=== PATIENT | male | born 1985 | race Two or more races ===

== ENCOUNTER 2020-02-12 10:47 | Outpatient (REF) | payer OTHER, SELFPAY ==
--- NOTE | 2020-02-12 | XR_ITS ---
EXAMINATION: XR SHOULDER, RIGHT CLINICAL INFORMATION: Right shoulder pain COMPARISON: None TECHNIQUE: AP external rotation, Grashey, scapular Y, and axillary views of the right shoulder. FINDINGS: The bones and soft tissues are normal. No fracture. Glenohumeral and acromioclavicular alignment is anatomic with normal joint space. No abnormal soft tissue calcifications. IMPRESSION: Unremarkable right shoulder radiographs.
== END 2020-02-12 10:48 | disposition home or self-care (01) ==
LOC: HO.XRAY 10:47
PROVIDERS: PCP Internal Medicine; Visit Provider Internal Medicine
DX: M25.511 Pain in right shoulder (principal)
CPT/HCPCS: 73030

== ENCOUNTER 2020-02-17 08:09 | Outpatient (RCR) | payer OTHER, SELFPAY ==
--- NOTE | 2020-02-17 09:41 | MHC.PT.EP ---
[facility] [place] Office [place] Office [place] [facility] [address] Reid Garcia [address] [phone] F: [phone] F: [phone] F: [phone] F: [phone] Physical Therapy Plan of Care Date of Evaluation: 02/17/20 Date of Surgery: Diagnosis: CHRONIC RIGHT SHOULDER PAIN Assessment: PT EVAL: 34 YO MALE REF TO PT FOR RIGHT CHRONIC SHOULDER PAIN, PROGRESSIVE x 5 YEARS. 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 Pt HAS OBJECTIVE FINDINGS OF PAIN IN RIGHT POST RC/ ANT GH AND MID DELT, LIMITED AROM RIGHT SH, DECR SCAP/ POST RC STRENGTH, (+) IMPINGEMENT SXS AND DECR STAB, AND (+) COMPENSATION. FUNCTIONAL LIMITATIONS INCLUDE DECR DEANA TO REACH ANT/ IR POST/ OVERHEAD, DIFFIC SLEEPING, SHOWERING, AND LIMITED W PHYSICALLY DEMANDING WORK TASKS. HE WOULD BENEFIT FROM PT TO ADDRESS PAIN/ SOFT TISSUE IRRIT, DEV HEP, AND IMPROVE FUNCTIONAL MOBILITY TOLERANCE. Frequency and Duration: The patient will be seen 2 x WK x 5 WKS Short Term Goals: Pt DEMON IMPROVED SELF CORRECT OF POSTURE AND INCR AROM RIGHT SH IN 2 WKS Pt'S RIGHT SH PAIN DECR TO 2-3/10 W REG ADLs IN 3 WKS [place] Man Goals: Pt INDEP W HEP AND SELF SX MGMT TECHN FOR RIGHT SH IN 5 WKS Pt RESUME REG ADLs/ FITNESS/WORK TASKS- EVIDENT W IMPROVED SPADI BY 20 POINTS IN 5 WKS Pt DEMON WFL STRENGTH AND STAB IN RIGHT SH GIRDLE IN 5 WKS Treatment Plan: Modalities to reduce pain, spasms and effusion. Manual therapy to restore motion and function. Therapeutic exercise to improve strength and flexibility. Neuromuscular re-education for posture and balance. Therapeutic activities to return to functional activities of daily living. Please sign and return to therapist. Thank you for your referral.
== END 2020-02-26 08:31 | disposition other institution (70) ==
LOC: HO.PT 08:09
PROVIDERS: Visit Provider Internal Medicine
DX: M25.511 Pain in right shoulder (principal)
CPT/HCPCS: 97110; 97161

== ENCOUNTER → 2020-03-11 09:16 | Outpatient (BNVA) | payer OTHER, SELFPAY | PROVIDERS: PCP Internal Medicine; Referring Provider Internal Medicine; Visit Provider Orthopaedic Surgery | DX: M75.41 Impingement syndrome of right shoulder (principal) | CPT/HCPCS: 20610; J1040 ==

== ENCOUNTER 2021-08-07 09:09 | Outpatient (REF) | payer OTHER, SELFPAY ==
[2021-08-07 10:18] LABS: Lipase 27 U/L (8-78)
== END 2021-08-07 09:10 | disposition home or self-care (01) ==
LOC: HO.LAB 09:09
PROVIDERS: Absent Provider Internal Medicine; PCP Internal Medicine; Visit Provider Family Medicine
DX: K21.9 Gastro-esophageal reflux disease without esophagitis (principal)
CPT/HCPCS: 36415; 83690

== ENCOUNTER 2023-11-07 09:01 | Outpatient (REF) | payer OTHER, SELFPAY ==
[2023-11-07 14:03] LABS: MANUAL DIFF FLAG NO
[2023-11-07 14:15] LABS: Basophils Percent Auto 0.6 % (0-2); Eosinophils Absolute Auto 0.2 X10*3/uL (0.0-0.4); Hematocrit 45.3 % (42.0-52.0); Hemoglobin 14.7 g/dl (14.0-18.0); Imm Gran Abs Auto 0.02 X10*3/uL (0.00-0.03); Imm Gran Pct Auto 0.4 % (0.0-0.4); Lymphocytes Absolute Auto 1.6 X10*3/uL (1.2-4.9); Lymphocytes Percent Auto 29.3 % (20-40); Mean Corpuscular HGB Conc 32.5 g/dl (31.0-36.0); Mean Corpuscular Hemoglobin 27.9 pg (27.0-33.0); Mean Platelet Volume 11.2 fL (9.4-12.4); Monocytes Absolute Auto 0.4 X10*3/uL (0.1-1.2); Monocytes Percent Auto 7.8 % (2-11); Neutrophils Absolute Auto 3.2 x10*3/uL (2.0-8.3); Neutrophils Percent Auto 58.9 % (45-73); Platelet Count 237 X10*3/uL (160-400); Red Blood Count 5.27 X10*6/uL (4.60-5.80); Red Cell Distribution Width 12.8 % (11.0-16.0); White Blood Count 5.4 X10*3/uL (4.8-10.8)
[2023-11-07 14:34] LABS: Alanine Aminotransferase 19 U/L (0-40); Albumin Level 4.2 g/dL (3.5-5.0); Alkaline Phosphatase 68 U/L (39-117); Anion Gap 12 (12-20); Aspartate Amino Transferase 23 U/L (5-37); Bilirubin Total 0.7 mg/dL (0.0-1.0); Blood Urea Nitrogen 10 mg/dL (9-16); Calcium 9.7 mg/dL (8.4-10.2); Carbon Dioxide 26 mmol/L (22-29); Chloride 106 mmol/L (96-108); Cholesterol 130 mg/dL (<200); Estimated Glomerular Filt Rate > 60; Glucose Random 107 mg/dL (60-115); HDL Cholesterol 37 mg/dL (>40); LDL Cholesterol Calculated 60 mg/dL (<100); Potassium 3.7 mmol/L (3.3-5.1); Sodium 140 mmol/L (135-145); Triglycerides 169 mg/dL (<150)
[2023-11-07 14:36] LABS: Estimated Average Glucose 108 mg/dL; Hemoglobin A1c % 5.4 % (<6.0)
[2023-11-07 14:50] LABS: TSH reflex Free T4 1.29 uIU/mL (0.32-4.0)
[2023-11-08 04:30] LABS: ~HepC Num1 0.11 S/CO (0.00-0.79); ~Hepatitis C Antibody Nonreactive (Nonreactive)
== END 2023-11-07 09:02 | disposition home or self-care (01) ==
LOC: HO.CHCLDS 09:01
PROVIDERS: Visit Provider Internal Medicine
DX: Z83.3 Family history of diabetes mellitus (principal); Z13.1 Encounter for screening for diabetes mellitus; Z13.89 Encounter for screening for other disorder
CPT/HCPCS: 36415; 80053; 80061; 83036; 84443; 85025; 86803

== ENCOUNTER 2023-11-07 09:33 | Outpatient (REF) | payer OTHER, SELFPAY ==
--- NOTE | ~2023-11-07 | XR_ITS ---
EXAMINATION: XR SHOULDER, RIGHT CLINICAL INFORMATION: Shoulder pain. COMPARISON: 02/12/2020. TECHNIQUE: Four views of the right shoulder. FINDINGS: Mild degenerative changes in the acromioclavicular joint with joint space narrowing and hypertrophic change. Glenohumeral alignment is preserved. No abnormal soft tissue calcifications appreciated adjacent to the humeral head. XR/XR shoulder RT min 2V IMPRESSION: Mild degenerative changes in the acromioclavicular joint.
== END 2023-11-07 09:34 | disposition home or self-care (01) ==
LOC: HO.HMGCX 09:33
PROVIDERS: PCP Internal Medicine; Visit Provider Internal Medicine
DX: M25.511 Pain in right shoulder (principal); G89.29 Other chronic pain
CPT/HCPCS: 73030